=== PATIENT | female | born 1945 | race Two or more races ===

== ENCOUNTER 2016-06-30 19:33 | Emergency (ER) | payer BC, OTHER ==
[2016-06-30 19:56] VITALS: BP 128/69; PULSE 68; TEMP 98.4; BMI 28.9
[2016-06-30] MEDS ORDERED: NAPROXEN 375 MG TABLET (FP) PO ONE (21:39)
[2016-06-30] MEDS ORDERED: CYCLOBENZAPRINE HCL 10 MG TABLET (FP) PO ONE (21:39)
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
[2016-06-30] MEDS ORDERED: NAPROXEN 500 MG TABLET (FP) PO ONE (21:44)
[2016-06-30] MEDS ORDERED: NAPROXEN 500 MG TABLET (FP) ONE (21:44)
[2016-06-30] MEDS ORDERED: CYCLOBENZAPRINE HCL 10 MG TABLET (FP) ONE ×2 (21:44→23:02)
== END 2016-06-30 23:27 | disposition home or self-care (01) ==
LOC: JERFT 19:33 → JER 19:33
DX: S16.1XXA Strain of muscle, fascia and tendon at neck level, initial encounter (principal); S13.8XXA Sprain of joints and ligaments of other parts of neck, initial encounter; V43.52XA Car driver injured in collision with other type car in traffic accident, initial encounter; Y92.414 Local residential or business street as the place of occurrence of the external cause; Y93.89 Activity, other specified; E11.9 Type 2 diabetes mellitus without complications; Z79.84 Long term (current) use of oral hypoglycemic drugs; I10 Essential (primary) hypertension
CPT/HCPCS: 70450-TC; 72125-TC; 99282-25

== ENCOUNTER 2018-04-16 17:12 | Emergency (ER) | payer BC, OTHER ==
[2018-04-16 17:32] VITALS: BP 137/73; PULSE 71; TEMP 98.2; BMI 24.7
[2018-04-16] MEDS ORDERED: KETOROLAC TROMETHAMINE 30 MG/1 ML VIAL IM ONE (18:14)
[2018-04-16] MEDS ORDERED: KETOROLAC TROMETHAMINE 30 MG/1 ML VIAL ONE (18:22)
--- NOTE | 2018-04-16 18:22 | PDOC ---
History of Present Illness - General Chief Complaint: Pain Stated Complaint: PAIN IN LEFT LEG Time Seen by Provider: 04/16/18 17:35 History Source: Patient Exam Limitations: No Limitations - History of Present Illness Initial Comments: 04/16/18 18:15 CHIEF COMPLAINT: Lower back pain HISTORY OF PRESENT ILLNESS: This is a 72-year-old woman past medical history of diabetes presents emergency department for evaluation of lower back pain for the past 3 weeks. Patient reports the pain initially started in the lower back radiating down the posterior side of her right leg but now is radiating down her left leg. She denies any pain in her right leg at this time. She denies any neurosensory deficits, incontinence of bladder or bowel, urinary retention, saddle anesthesia or foot drop. She denies history of IV drug use or cancer. REVIEW OF SYSTEMS: GENERAL: Afebrile, denies any weakness RESPIRATORY: No cough, wheezing, or hemoptysis. CARDIAC: No chest pain or shortness of breath MUSCULOSKELETAL: Pain to generalized lower back. No point tenderness. Pain worse on left than right. SKIN : No erythema, no bruising, no deformity. GI/: Denies any abdominal pain, no urinary difficulty, incontinence or urinary retention. RECTAL: Denies any difficulty this A.m. NEUROLOGICAL: Denies any numbness or tingling. No neurosensory deficits. PHYSICAL EXAM: GENERAL: The patient is awake, alert, and fully oriented, in no acute distress. RESPIRATORY: Lungs clear bilaterally, no rhonchi wheezes or crackles CARDIAC: S1-S2 audible, no murmur rub or gallop MUSCULOSKELETAL: Pain to generalized lower back, nonradiating, no tingling or sensory deficit. Less than 2 second cap refill, +2 pedal pulses. No spinal point tenderness. Normal reflexive and no deficits to sensation or strength. Performs straight leg raises without difficulty. No discoloration to lower back. No muscle spasms present. GI/: Abdomen soft, nontender, nondistended. No rebound tenderness. No masses palpable. RECTAL: Deferred patient with no neurological findings SKIN: Warm, Dry, normal turgor, no erythema, no edema no bruising. Past History - Past Medical History Allergies/Adverse Reactions: Allergies Allergy/AdvReac Type Severity Reaction Status Date / Time No Known Allergies Allergy Verified 04/16/18 17:26 Home Medications: Ambulatory Orders Insulin (Levemir) [Levemir Flexpen -] 55 units SQ HS 09/30/13 Repaglinide [Prandin] 2 mg PO TID 09/30/13 Insulin Aspart [Novolog] 10 - 14 unit SQ TID 05/08/14 Lisinopril [Prinivil] 5 mg PO DAILY 05/08/14 Aspirin [ASA -] 81 mg PO DAILY #30 tab.chew 05/09/14 Cyclobenzaprine HCl [Flexeril 10 mg] 10 mg PO BID PRN #30 tablet 06/30/16 Diabetes: Yes - Surgical History Appendectomy: Yes Orthopedic Surgery: Yes (R WRIST) - Suicide/Smoking/Psychosocial Hx Smoking History: Unknown if ever smoked Have you smoked in the past 12 months: No If you are a former smoker, when did you quit?: 5 years ago Hx Alcohol Use: No Drug/Substance Use Hx: No Substance Use Type: None *Physical Exam - Vital Signs Last Vital Signs Temp Pulse Resp BP Pulse Ox 98.2 F 71 18 137/73 99 04/16/18 17:30 04/16/18 17:30 04/16/18 17:30 04/16/18 17:30 04/16/18 17:30 Moderate Sedation - Procedure Monitoring Vital Signs: Procedure Monitoring Vital Signs Temperature 98.2 F 04/16/18 17:30 Pulse Rate 71 04/16/18 17:30 Respiratory Rate 18 04/16/18 17:30 Blood Pressure 137/73 04/16/18 17:30 O2 Sat by Pulse Oximetry (%) 99 04/16/18 17:30 Medical Decision Making - Medical Decision Making 04/16/18 18:22 A/P: 72-year-old woman with lower back pain with left-sided sciatica Toradol 30 mg IM Discharge home to follow-up with her primary doctor as needed. *DC/Admit/Observation/Transfer Diagnosis at time of Disposition: Lower back pain Qualifiers: Chronicity: acute Back pain laterality: left Sciatica presence: with sciatica Sciatica laterality: sciatica of left side Qualified Code(s): M54.42 - Lumbago with sciatica, left side - Discharge Dispostion Disposition: HOME Condition at time of disposition: Stable Decision to Admit order: No - Referrals Referrals: Billie Ortega MD [Primary Care Provider] - - Patient Instructions Additional Instructions: Take Tylenol or Aleve as needed for pain. Follow manufacturers instructions for appropriate dosage. Warm moist heat applied to your back may help alleviate pain. Return to emergency department for discoloration of the foot, numbness or tingling to the foot, worsening pain, or any other concerns. Thank you very much for choosing us to provide your emergent healthcare needs. - Post Discharge Activity
== END 2018-04-16 18:58 | disposition home or self-care (01) ==
LOC: JERFT 17:12
PROC: 3E0233Z Introduction of Anti-inflammatory into Muscle, Percutaneous Approach (ICD-10-PCS; principal; 2018-04-16)
DX: M54.42 Lumbago with sciatica, left side (principal); E11.9 Type 2 diabetes mellitus without complications; Z79.4 Long term (current) use of insulin
CPT/HCPCS: 96372; 99281-25

== ENCOUNTER 2019-04-15 11:55 | Emergency (ER) | payer OTHER ==
[2019-04-15 12:24] VITALS: BP 106/62; PULSE 86; TEMP 98.1; BMI 26.9
--- NOTE | 2019-04-15 15:06 | EKG ---
Test Reason : Blood Pressure : / mmHG Vent. Rate : 065 BPM Atrial Rate : 065 BPM P-R Int : 130 ms QRS Dur : 090 ms QT Int : 486 ms P-R-T Axes : 049 002 031 degrees QTc Int : 505 ms NORMAL SINUS RHYTHM NONSPECIFIC T WAVE ABNORMALITY PROLONGED QT ABNORMAL ECG WHEN COMPARED WITH ECG OF 09-MAY-2014 13:47, NONSPECIFIC T WAVE ABNORMALITY HAS REPLACED INVERTED T WAVES IN INFERIOR LEADS T WAVE INVERSION NO LONGER EVIDENT IN ANTERIOR LEADS Confirmed by BEN DANIEL MD ([id number]) on 04/15/2019 3:06:08 PM Referred By: Confirmed By:BEN DANIEL MD
--- NOTE | 2019-04-15 15:44 | PDOC ---
History of Present Illness - General History Source: Patient - History of Present Illness Initial Comments: 04/15/19 17:17 The patient is a 73 y/o female PMHx of HTN, IDDM here today w/4 days of headache and chest pain. Headache is frontal, throbbing and increased severity of her normal headaches for which she usually takes Fiorcet. Patient also c/o sternal, throbbing, non-radiating chest pain and associated shortness of breath , no lightheadedness, palpitations, diaphoresis. No lower extremity swelling or recent travel/immobilization. <Diane Barkley - Last Filed: 04/16/19 09:07> <Marlene Kwon - Last Filed: 04/16/19 10:07> - General Chief Complaint: Shortness of Breath Stated Complaint: SOB Past History - Past Medical History COPD: No Diabetes: Yes - Surgical History Appendectomy: Yes Orthopedic Surgery: Yes (R WRIST) - Psycho Social/Smoking Cessation Hx Smoking History: Unknown if ever smoked Have you smoked in the past 12 months: No If you are a former smoker, when did you quit?: 5 years ago Hx Alcohol Use: No Drug/Substance Use Hx: No Substance Use Type: None <Diane Barkley - Last Filed: 04/16/19 09:07> <Marlene Kwon - Last Filed: 04/16/19 10:07> - Past Medical History Allergies/Adverse Reactions: Allergies Allergy/AdvReac Type Severity Reaction Status Date / Time No Known Allergies Allergy Verified 04/16/18 17:26 Home Medications: Ambulatory Orders Insulin (Levemir) [Levemir Flexpen -] 55 units SQ HS 09/30/13 Repaglinide [Prandin] 2 mg PO TID 09/30/13 Insulin Aspart [Novolog] 10 - 14 unit SQ TID 05/08/14 Lisinopril [Prinivil] 5 mg PO DAILY 05/08/14 Aspirin [ASA -] 81 mg PO DAILY #30 tab.chew 05/09/14 Cyclobenzaprine HCl [Flexeril 10 mg] 10 mg PO BID PRN #30 tablet 06/30/16 Butalb/Acetaminophen/Caffeine [Fioricet Tablet 50-325-40] 1 tab PO Q6H PRN 02/14 /20 Insulin Detemir [Levemir Flextouch] 60 unit SQ HS 04/15/19 Review of Systems - Review of Systems Constitutional: No: Chills, Fever HEENTM: No: Blurred Vision, Throat Pain Respiratory: Yes: Shortness of Breath. No: Cough Cardiac (ROS): Yes: Chest Pain. No: Lightheadedness, Palpitations ABD/GI: No: Constipated, Diarrhea, Nausea : No: Burning, Hematuria Neurological: Yes: Headache. No: Numbness, Tremors, Ataxia, Dizziness <Diane Barkley - Last Filed: 04/16/19 09:07> *Physical Exam - Vital Signs Last Vital Signs Temp Pulse Resp BP Pulse Ox 98.1 F 86 20 106/62 98 04/15/19 12:22 04/15/19 12:22 04/15/19 12:22 04/15/19 12:22 04/15/19 12:22 - Physical Exam General Appearance: Yes: Nourished, Appropriately Dressed HEENT: positive: Normal Voice, Hearing Grossly Normal Neck: positive: Trachea midline, Supple Respiratory/Chest: positive: Lungs Clear, Normal Breath Sounds Cardiovascular: positive: S1, S2. negative: Edema, JVD Gastrointestinal/Abdominal: positive: Normal Bowel Sounds, Soft Extremity: positive: Normal Capillary Refill, Normal Inspection Integumentary: positive: Normal Color, Dry, Warm Neurologic: positive: chief technology officer II-XII NML intact, Fully Oriented, Alert, Responsive. negative: Facial Droop, Numbness <Diane Barkley - Last Filed: 04/16/19 09:07> - Vital Signs Last Vital Signs Temp Pulse Resp BP Pulse Ox 98.1 F 86 20 106/62 98 04/15/19 12:22 04/15/19 12:22 04/15/19 12:22 04/15/19 12:22 04/15/19 12:22 <Marlene Kwon - Last Filed: 04/16/19 10:07> Medical Decision Making - Medical Decision Making 04/15/19 17:21 73 y/o female with chest pain and headache. VS unremarkable Frontal diagnosis: r/o ACS, also consider MSK, GERD, Esophageal Spasm, costochondritis. Head CT as patient states OSORIO is of different severity than previous migraines evaluate for bleed. Patient is choosing to leave AMA - counseled on risks of worsening morbidity/ mortality. <Diane Barkley - Last Filed: 04/16/19 09:07> Discharge - Discharge Information Problems reviewed: Yes - Admission No <Ray Barkleyica - Last Filed: 04/16/19 09:07> <Marlene Kwon - Last Filed: 04/16/19 10:07> - Discharge Information Clinical Impression/Diagnosis: Headache, Chest pain Disposition: AGAINST MEDICAL ADVICE - Follow up/Referral Referrals: Norberto Sosa MD [Primary Care Provider] - - Patient Discharge Instructions Additional Instructions: You are choosing to leave AGAINST MEDICAL ADVICE The risk of doing so include infection, myocardial infarction, arrhythmia, pneumonia, Pulmonary embolism, dissection, head bleed, stroke, respiratory failure, cardiac arrest, seizure/coma//severe disability, loss of function , delay in diagnosis and treatment. Return to the Emergency Department for any new/worsening/concerning symptoms or should you wish to receive a complete medical evaluation. - Post Discharge Activity
[2019-04-15] MEDS ORDERED: SODIUM CHLORIDE 0.9% 500 ML INFUS.BAG IV ONE (16:04)
[2019-04-15] MEDS ORDERED: METOCLOPRAMIDE HCL INJECTION 10 MG/2 ML VIAL IVPUSH ONE (16:04)
[2019-04-15] MEDS ORDERED: ACETAMINOPHEN 1000 MG/100 ML VIAL (NON FORMULARY) IVPB ONE (16:04)
[2019-04-15] MEDS ORDERED: DEXAMETHASONE SOD PHOSPHATE 10 MG/1 ML VIAL IM ONE (16:08)
[2019-04-15] MEDS ORDERED: ACETAMINOPHEN 500 MG TABLET (FP) PO ONE (16:08)
--- NOTE | 2019-04-15 16:29 | PDOC ---
Documentation entered by Maryjo Hernandez SCRIBE, acting as scribe for Marlene Kwon MD. Marlene Kwon MD: This documentation has been prepared by the David christie Nirvannie, SCRIBE, under my direction and personally reviewed by me in its entirety. I confirm that the documentation accurately reflects all work, treatment, procedures, and medical decision making performed by me. Attending Attestation - Resident Resident Name: Diane Barkley - ED Attending Attestation I have performed the following: I have examined & evaluated the patient, The case was reviewed & discussed with the resident, I agree w/resident's findings & plan, Exceptions are as noted - HPI HPI: 04/15/19 16:25 [id number], with a significant past medical history of hypertension and insulin- dependent diabetes, who presents to the emergency department for 3-4 days of chest pain and shortness of breath. Denies fever, chills, palpitation, dizziness, weakness, N, V, D, abdominal pain , bladder and bowel problems, leg swelling, No sick contacts or travel. No new changes in medications. Allergies: None Past Medical History: hypertension and insulin-dependent diabetes Social history: Lives with family. No tobacco, ETOH or drug use. Surgical history: R wrist surgery. Meds: as documented in EMR PMD: Dr. Sosa - Physicial Exam PE: 04/15/19 16:26 NAD, well appearing, EOMI, PERRL, nl conjunctiva, anicteric; neck supple. lungs clear, no respiratory distress. RRR, abdomen soft nontender. No rebound, no guarding. Back nontender. SHEETS x4, no focal neuro deficits. No peripheral edema. normal color for ethnicity, WWP. gait stable. 04/15/19 16:27 - Medical Decision Making 04/15/19 16:28 Vital Signs Temp Pulse Resp BP Pulse Ox 98.1 F 86 20 106/62 98 04/15/19 12:22 04/15/19 12:22 04/15/19 12:22 04/15/19 12:22 04/15/19 12:22 VS reviewed, wnl. DDx: ACS, coronary vasospasm, NSTEMI, arrhythmia, unstable angina, PE, dissection, PUD, esophageal spasm, GERD, gastritis, costochondritis, pneumonia, pleurisy, pericarditis/myocarditis. dehydration, electrolyte/metabolic derangements. migraine, tension osorio, cluster OSORIO, CVA, ICH, bleed. Considered but clinically doubt based on HPI and PE: Low suspicion for pulmonary embolism or dissection. Chest pain negative: No evidence of ACS, pericarditis, myocarditis, pulmonary embolism, pneumothorax, pneumonia, Zoster, or esophageal perforation. Historically not abrupt in onset, tearing or ripping, pulses symmetric, no evidence of aortic dissection. DDx SOB: ACS, PE, PTX, CHF, COPD exac, pulmonary edema, pleurisy, pneumonia, viral syndrome. effusion. anemia, electrolyte/metabolic derangements. EKG normal sinus rhythm, no interval abnormalities, narrow QRS, ST and T wave segments and morphology normal. Nonspecific T wave abnormalities, unchanged from prior s/o to Dr Dudley pending labs, CTH, reeval. will warrant one trop to eval for ACS/NSTEMI, labs and head imaging to eval for mass/bleed/cva. 04/15/19 16:28
== END 2019-04-15 17:30 | disposition left against medical advice (07) ==
LOC: JER 11:55
DX: R07.9 Chest pain, unspecified (principal); R51 Headache; I10 Essential (primary) hypertension; E11.9 Type 2 diabetes mellitus without complications; Z79.4 Long term (current) use of insulin
CPT/HCPCS: 93005; 93010; 99284-25

== ENCOUNTER 2022-08-01 10:46 | Observation (INO) | payer OTHER ==
[2022-08-01] MEDS ORDERED: SODIUM CHLORIDE 0.9% 500 ML INFUS.BAG IV ONE ×2 (11:27→13:19)
[2022-08-01] MEDS ORDERED: ACETAMINOPHEN 1000 MG/100 ML BAG IVPB ONE (11:30)
[2022-08-01] MEDS ORDERED: KETOROLAC TROMETHAMINE 15 MG/ML VIAL IVPUSH ONE (11:37)
[2022-08-01] MEDS ORDERED: ACETAMINOPHEN INJECTION 100 ML IVPB ONE ×2 (12:10→19:40)
[2022-08-01] MEDS ORDERED: KETOROLAC TROMETHAMINE 15 MG/ML VIAL ONE (12:10)
[2022-08-01 12:29] LABS: BASO % 0.1 % (0-2.0); HEMATOCRIT 37.7 % (32.4-45.2); HEMOGLOBIN 12.5 GM/dL (10.7-15.3); LYMPH % 9.2 % (8-40); MCH 29.5 pg (25.7-33.7); MCHC 33.3 g/dl (32.0-36.0); MEAN CELL VOLUME 88.6 fl (80-96); MEAN PLT VOLUME 9.3 fl (7.5-11.1); NEUT % 82.7 % (42.8-82.8); PLATELET COUNT 302 10^3/uL (134-434); RBC 4.26 M/mm3 (3.60-5.2); RDW 13.5 % (11.6-15.6)
[2022-08-01 12:55] LABS: POTASSIUM 3.7 mmol/L (3.5-5.1)
[2022-08-01 12:57] LABS: ALBUMIN 3.6 g/dl (3.4-5.0); BLOOD UREA NITROGEN 10.7 mg/dL (7-18); CALCIUM 10.5 mg/dL (8.5-10.1)
[2022-08-01 13:00] LABS: CREATININE 0.7 mg/dL (0.55-1.3); LACTIC ACID 2.6 mmol/L (0.4-2.0)
[2022-08-01 13:02] LABS: BILIRUBIN,TOTAL 0.6 mg/dL (0.2-1)
[2022-08-01 14:06] LABS: URINE COLOR YELLOW
[2022-08-01 14:07] LABS: PH,URINE 5.5 (5.0-8.0); URINE APPEARANCE TURBID; URINE BILIRUBIN NEGATIVE (NEGATIVE); URINE GLUCOSE (UA) 3+ (NEGATIVE); URINE KETONE NEGATIVE (NEGATIVE); URINE LEUK ESTERASE 3+ (NEGATIVE); URINE NITRITE POSITIVE (NEGATIVE); URINE PROTEIN 3+ (NEGATIVE); URINE UROBILINOGEN 0.2 mg/dL (0.2-1.0)
[2022-08-01 14:10] LABS: EPI CELLS >36 /uL (0-25.1); HYALINE CASTS 72 /uL (0-3.1); URINE BACTERIA >9,000 /uL (0-1359); URINE WBC 23610 /uL (0-25.8)
[2022-08-01] MEDS ORDERED: CEFTRIAXONE 1 GM in DEXTROSE 5%-WATER - 50 ML IVPB ONE (14:14)
[2022-08-01] MEDS ORDERED: CEFTRIAXONE 1 GM/50 ML BAG ONE (14:32)
[2022-08-01 15:05] LABS: URINE RBC 660 /uL (0-23.9)
[2022-08-01] MEDS: DEXTROSE 5%-0.45% SALINE 1,000 ML IV SCH (18:22)
[2022-08-01] MEDS: INSULIN (NOVOLOG) ASPART 100 UNITS/ML 10ML VIAL SQ SCH (18:22)
[2022-08-01] MEDS: ACETAMINOPHEN 500 MG TABLET (FP) PO PRN (19:51)
[2022-08-01] MEDS: ATORVASTATIN CA 20 MG TABLET (FP) PO SCH (21:47)
[2022-08-01] MEDS: INSULIN (LEVEMIR) 100 UNITS/ML UNITS SQ SCH (21:50)
[2022-08-01] MEDS: INSULIN SLIDING SCALE (NOVOLOG) 1 VIAL SQ SCH (21:51)
[2022-08-01 22:12] VITALS: BMI 24.1
[2022-08-02] MEDS: ACETAMINOPHEN 500 MG TABLET (FP) PO PRN (05:36)
[2022-08-02] MEDS: INSULIN (NOVOLOG) ASPART 100 UNITS/ML 10ML VIAL SQ SCH ×3 (06:03→16:40)
[2022-08-02] MEDS: INSULIN SLIDING SCALE (NOVOLOG) 1 VIAL SQ SCH ×4 (06:03→21:22)
[2022-08-02] MEDS ORDERED: KETOROLAC TROMETHAMINE 30 MG/1 ML VIAL IVPUSH PRN (07:31)
[2022-08-02] MEDS: DEXTROSE 5%-0.45% SALINE 1,000 ML IV SCH ×3 (07:35→16:41)
[2022-08-02] MEDS ORDERED: RIMEGEPANT SULFATE 75 MG TAB.RAPDIS SL PRN (07:36)
[2022-08-02] MEDS: LISINOPRIL 5 MG TABLET PO SCH (09:33)
[2022-08-02] MEDS ORDERED: CEFTRIAXONE 1 GM in DEXTROSE 5%-WATER - 50 ML IVPB SCH (10:00)
[2022-08-02 10:08] LABS: HEMATOCRIT 30.1 % (32.4-45.2); MCH 29.3 pg (25.7-33.7); MCHC 33.1 g/dl (32.0-36.0); MEAN CELL VOLUME 88.4 fl (80-96); MEAN PLT VOLUME 9.1 fl (7.5-11.1); PLATELET COUNT 242 10^3/uL (134-434); RDW 13.5 % (11.6-15.6); WHITE BLOOD COUNT 12.5 K/mm3 (4.0-10.0)
[2022-08-02 10:29] LABS: POTASSIUM 3.4 mmol/L (3.5-5.1)
[2022-08-02 10:33] LABS: CHOLESTEROL 109 mg/dL (50-200)
[2022-08-02 10:34] LABS: LDL CHOLESTEROL (ONLY SJRH) 50 mg/dL (5-100)
[2022-08-02] MEDS: INSULIN (LEVEMIR) 100 UNITS/ML UNITS SQ SCH ×2 (10:35→21:22)
[2022-08-02 10:36] LABS: BLOOD UREA NITROGEN 8.5 mg/dL (7-18); HDL CHOLESTEROL 44 mg/dL (40-60); MAGNESIUM 1.7 mg/dL (1.8-2.4)
[2022-08-02 10:39] LABS: CREATININE 0.5 mg/dL (0.55-1.3); PHOSPHOROUS 1.4 mg/dL (2.5-4.9)
[2022-08-02 10:41] LABS: BILIRUBIN,TOTAL 0.4 mg/dL (0.2-1)
[2022-08-02 10:53] LABS: ALBUMIN 2.4 g/dl (3.4-5.0); TOT PROT 5.8 g/dl (6.4-8.2)
[2022-08-02] MEDS ORDERED: INSULIN (NOVOLOG) ASPART 100 UNITS/ML 10ML VIAL ONE (21:03)
[2022-08-02] MEDS: TOPIRAMATE 25 MG TABLET PO SCH (21:16)
[2022-08-02] MEDS: ATORVASTATIN CA 20 MG TABLET (FP) PO SCH (21:16)
[2022-08-03] MEDS: PIPERACILLIN/TAZOB 3.375 GM 3.375 GM in DEXTROSE 5%-WATER - 50 ML IVPB SCH ×3 (01:50→17:04)
[2022-08-03] MEDS: INSULIN (NOVOLOG) ASPART 100 UNITS/ML 10ML VIAL SQ SCH ×3 (06:00→16:26)
[2022-08-03] MEDS: INSULIN SLIDING SCALE (NOVOLOG) 1 VIAL SQ SCH ×4 (06:01→21:51)
[2022-08-03] MEDS: ACETAMINOPHEN 500 MG TABLET (FP) PO PRN ×2 (06:21→21:49)
[2022-08-03] MEDS: LISINOPRIL 5 MG TABLET PO SCH (09:35)
[2022-08-03] MEDS: INSULIN (LEVEMIR) 100 UNITS/ML UNITS SQ SCH ×2 (10:51→21:51)
[2022-08-03] MEDS: DEXTROSE 5%-0.45% SALINE 1,000 ML IV SCH (16:24)
[2022-08-03] MEDS ORDERED: INSULIN (NOVOLOG) ASPART 100 UNITS/ML 10ML VIAL ONE (21:31)
[2022-08-03] MEDS: TOPIRAMATE 25 MG TABLET PO SCH (21:50)
[2022-08-03] MEDS: ATORVASTATIN CA 20 MG TABLET (FP) PO SCH (21:51)
[2022-08-04] MEDS: PIPERACILLIN/TAZOB 3.375 GM 3.375 GM in DEXTROSE 5%-WATER - 50 ML IVPB SCH ×3 (01:31→17:26)
[2022-08-04 05:28] VITALS: RESP 18
[2022-08-04] MEDS: DEXTROSE 5%-0.45% SALINE 1,000 ML IV SCH ×2 (06:23→16:35)
[2022-08-04] MEDS: INSULIN SLIDING SCALE (NOVOLOG) 1 VIAL SQ SCH ×3 (06:25→16:36)
[2022-08-04] MEDS: INSULIN (NOVOLOG) ASPART 100 UNITS/ML 10ML VIAL SQ SCH ×3 (06:25→16:36)
[2022-08-04] MEDS: LISINOPRIL 5 MG TABLET PO SCH (09:51)
[2022-08-04 10:44] LABS: POTASSIUM 3.9 mmol/L (3.5-5.1)
[2022-08-04 10:50] LABS: ALBUMIN 2.5 g/dl (3.4-5.0); BLOOD UREA NITROGEN 7.4 mg/dL (7-18); CALCIUM 9.9 mg/dL (8.5-10.1)
[2022-08-04] MEDS: INSULIN (LEVEMIR) 100 UNITS/ML UNITS SQ SCH (10:51)
[2022-08-04 10:53] LABS: CREATININE 0.7 mg/dL (0.55-1.3)
[2022-08-04 10:55] LABS: BILIRUBIN,TOTAL 0.3 mg/dL (0.2-1); TOT PROT 6.4 g/dl (6.4-8.2)
[2022-08-04 14:39] VITALS: BP 125/73; PULSE 60; TEMP 98.1
== END 2022-08-04 17:41 | disposition home or self-care (01) ==
LOC: JERFT 10:46 → JER 10:46 → JERBED 16:00 → J6S 21:25
PROVIDERS: ADMIT Student in an Organized Health Care Education/Training Program; ATTEND Family Medicine
PROC: 3E03329 Introduction of Other Anti-infective into Peripheral Vein, Percutaneous Approach (ICD-10-PCS; principal; 2022-08-01)
PROC: 3E0333Z Introduction of Anti-inflammatory into Peripheral Vein, Percutaneous Approach (ICD-10-PCS; 2022-08-01)
PROC: 3E0337Z Introduction of Electrolytic and Water Balance Substance into Peripheral Vein, Percutaneous Approach (ICD-10-PCS; 2022-08-01)
PROC: 3E033GC Introduction of Other Therapeutic Substance into Peripheral Vein, Percutaneous Approach (ICD-10-PCS; 2022-08-01)
PROC: 3E013VG Introduction of Insulin into Subcutaneous Tissue, Percutaneous Approach (ICD-10-PCS; 2022-08-01)
DX: N12 Tubulo-interstitial nephritis, not specified as acute or chronic (principal); N39.0 Urinary tract infection, site not specified; E11.9 Type 2 diabetes mellitus without complications; R51.9 Headache, unspecified; M54.42 Lumbago with sciatica, left side; Z79.4 Long term (current) use of insulin; E87.6 Hypokalemia; R80.9 Proteinuria, unspecified; N28.1 Cyst of kidney, acquired
CPT/HCPCS: 0241U-QW; 36415; 71046-TC-FY; 76775-TC; 80053; 80061; 81003; 82570; 82962; 83036; 83605; 83735; 84100; 84156; 84484; 85025; 85027; 87040; 87086; 87186; 93005; 93010; 96365; 96372; 96375; 96376; 97116-GP; 97161-GP; 99285-25; G0378

== ENCOUNTER 2022-10-24 16:16 | Emergency (ER) | payer OTHER ==
[2022-10-24 16:22] VITALS: BP 103/63; PULSE 66; RESP 18; TEMP 97; BMI 26.3
[2022-10-24] MEDS ORDERED: ACETAMINOPHEN 325 MG TABLET (FP) PO ONE (18:28)
[2022-10-24] MEDS ORDERED: IBUPROFEN 400 MG TABLET (FP) PO ONE ×2 (18:28→18:44)
[2022-10-24] MEDS ORDERED: ACETAMINOPHEN 325 MG TABLET (FP) ONE (18:44)
[2022-10-24 18:52] LABS: EPI CELLS 17 /uL (0-25.1); HYALINE CASTS 1 /uL (0-3.1); PH,URINE 5.5 (5.0-8.0); URINE APPEARANCE CLEAR; URINE BACTERIA 209 /uL (0-1359); URINE BILIRUBIN NEGATIVE (NEGATIVE); URINE COLOR YELLOW; URINE GLUCOSE (UA) NEGATIVE (NEGATIVE); URINE KETONE NEGATIVE (NEGATIVE); URINE LEUK ESTERASE TRACE (NEGATIVE); URINE NITRITE NEGATIVE (NEGATIVE); URINE PROTEIN NEGATIVE (NEGATIVE); URINE RBC 11 /uL (0-23.9); URINE WBC 24 /uL (0-25.8)
[2022-10-24] MEDS ORDERED: LIDOCAINE 5% TOPICAL PATCH ONE (18:54)
== END 2022-10-24 19:06 | disposition home or self-care (01) ==
LOC: JERFT 16:16
DX: M54.50 Low back pain, unspecified (principal); M54.6 Pain in thoracic spine; R26.2 Difficulty in walking, not elsewhere classified
CPT/HCPCS: 81003; 87086; 87186; 99283-25

== ENCOUNTER 2023-03-21 13:26 | Emergency (ER) | payer OTHER ==
[2023-03-21 13:36] VITALS: BP 163/79; PULSE 77; RESP 18; TEMP 98.3; BMI 25.9
[2023-03-21 16:13] LABS: URINE APPEARANCE CLEAR; URINE BILIRUBIN NEGATIVE (NEGATIVE); URINE COLOR YELLOW; URINE GLUCOSE (UA) 3+ (NEGATIVE); URINE KETONE TRACE (NEGATIVE); URINE LEUK ESTERASE NEGATIVE (NEGATIVE); URINE NITRITE NEGATIVE (NEGATIVE); URINE PROTEIN NEGATIVE (NEGATIVE); URINE UROBILINOGEN 0.2 mg/dL (0.2-1.0)
[2023-03-21 16:16] LABS: BASO % 0.4 % (0-2.0); EOS % 1.9 % (0-4.5); HEMATOCRIT 41.5 % (32.4-45.2); HEMOGLOBIN 13.4 GM/dL (10.7-15.3); LYMPH % 25.5 % (8-40); MCHC 32.3 g/dl (32.0-36.0); MEAN CELL VOLUME 89.7 fl (80-96); MEAN PLT VOLUME 9.2 fl (7.5-11.1); MONO % 6.8 % (3.8-10.2); NEUT % 65.4 % (42.8-82.8); PLATELET COUNT 286 10^3/uL (134-434); RBC 4.62 M/mm3 (3.60-5.2); RDW 13.8 % (11.6-15.6); WHITE BLOOD COUNT 12.6 K/mm3 (4.0-10.0)
[2023-03-21 16:30] LABS: POTASSIUM 4.6 mmol/L (3.5-5.1)
[2023-03-21 16:33] LABS: CALCIUM 10.4 mg/dL (8.5-10.1)
[2023-03-21 16:34] LABS: BLOOD UREA NITROGEN 19.8 mg/dL (7-18)
[2023-03-21 16:37] LABS: CREATININE 0.9 mg/dL (0.55-1.3)
== END 2023-03-21 18:07 | disposition home or self-care (01) ==
LOC: JER 13:26
DX: R51.9 Headache, unspecified (principal); R20.2 Paresthesia of skin; R07.9 Chest pain, unspecified; M54.9 Dorsalgia, unspecified; M79.2 Neuralgia and neuritis, unspecified
CPT/HCPCS: 36415; 80048; 81003; 85025; 87086; 93005; 93010; 99284-25

== ENCOUNTER 2023-09-20 17:29 | Emergency (ER) | payer OTHER ==
[2023-09-20 18:14] VITALS: BP 145/74; PULSE 78; RESP 18; TEMP 98.2; BMI 25.6
[2023-09-20] MEDS ORDERED: DEXTROSE 50%-WATER 25 GM/50 ML DISP.SYRIN ONE (18:33)
[2023-09-20] MEDS ORDERED: LIDOCAINE 4% PATCH TP ONE (18:44)
[2023-09-20] MEDS: DEXTROSE 50%-WATER - 25 GM/50 ML VIAL IVPUSH ONE (19:01)
[2023-09-20] MEDS: LIDOCAINE 4% PATCH TP ONE (19:02)
[2023-09-20 19:09] LABS: BASO % 0.3 % (0-2.0); EOS % 0.7 % (0-4.5); HEMATOCRIT 37.4 % (32.4-45.2); HEMOGLOBIN 12.2 GM/dL (10.7-15.3); LYMPH % 30.4 % (8-40); MCH 29.3 pg (25.7-33.7); MCHC 32.6 g/dl (32.0-36.0); MEAN PLT VOLUME 9.1 fl (7.5-11.1); MONO % 7.7 % (3.8-10.2); NEUT % 60.9 % (42.8-82.8); PLATELET COUNT 286 10^3/uL (134-434); RBC 4.16 M/mm3 (3.60-5.2); RDW 14.2 % (11.6-15.6); WHITE BLOOD COUNT 13.7 K/mm3 (4.0-10.0)
[2023-09-20 19:17] LABS: INR 0.92 (0.83-1.09); PROTHROMBIN TIME (PATIENT) 10.4 SEC (9.7-13.0)
[2023-09-20 19:20] LABS: ACTIVATED PTT 27.7 SECONDS (25.2-36.5)
[2023-09-20 19:24] LABS: POTASSIUM 4.4 mmol/L (3.5-5.1)
[2023-09-20 19:29] LABS: ALBUMIN 3.6 g/dl (3.4-5.0); CALCIUM 10.6 mg/dL (8.5-10.1)
[2023-09-20 19:33] LABS: CREATININE 0.6 mg/dL (0.55-1.3)
[2023-09-20 19:34] LABS: BILIRUBIN,TOTAL 0.4 mg/dL (0.2-1)
[2023-09-20 19:35] LABS: TOT PROT 7.4 g/dl (6.4-8.2)
[2023-09-20] MEDS ORDERED: ACETAMINOPHEN INJECTION 100 ML IVPB ONE (20:19)
[2023-09-20] MEDS: ACETAMINOPHEN 1000 MG/100 ML BAG IVPB ONE (20:41)
[2023-09-20] MEDS ORDERED: LIDOCAINE PATCH REMOVAL MC SCH (22:00)
== END 2023-09-20 21:51 | disposition home or self-care (01) ==
LOC: JER 17:29
PROC: 3E033NZ Introduction of Analgesics, Hypnotics, Sedatives into Peripheral Vein, Percutaneous Approach (ICD-10-PCS; principal; 2023-09-20)
PROC: 3E0337Z Introduction of Electrolytic and Water Balance Substance into Peripheral Vein, Percutaneous Approach (ICD-10-PCS; 2023-09-20)
DX: R51.9 Headache, unspecified (principal); R07.2 Precordial pain; R11.0 Nausea; R06.02 Shortness of breath; Z20.822 Contact with and (suspected) exposure to COVID-19
CPT/HCPCS: 0241U-QW; 36415; 70450-TC; 71046-TC-FY; 80053; 82962; 83880; 84484; 85025; 85379; 85610; 85730; 86850; 86900; 86901; 93005; 93010; 96374; 96375; 99285-25; J0131

== ENCOUNTER 2023-10-23 04:00 | Day surgery (SDC) | payer OTHER ==
[2023-10-21 16:42] VITALS: BMI 27.8
[2023-10-23] MEDS ORDERED: LIDOCAINE HCL/PF 1% SDV 5ML VIAL ONE (07:21)
[2023-10-23] MEDS: LIDOCAINE HCL 1% PRESERVATIVE FREE - 30ML VIAL IJ ONE ×2 (08:58)
[2023-10-23 10:21] VITALS: BP 142/74; PULSE 67; RESP 20; TEMP 97.8
[2023-10-23] MEDS ORDERED: ACETAMINOPHEN 500 MG TABLET (FP) PO PRN (15:19)
== END 2023-10-23 10:02 | disposition home or self-care (01) ==
LOC: JASU-SURG 04:00
PROVIDERS: ATTEND Pain Medicine Pain Medicine
PROC: 01HY3MZ Insertion of Neurostimulator Lead into Peripheral Nerve, Percutaneous Approach (ICD-10-PCS; principal; 2023-10-23 08:30)
DX: G89.4 Chronic pain syndrome (principal); M54.50 Low back pain, unspecified
CPT/HCPCS: 64555; C1778; 76000-TC-FY

== ENCOUNTER 2024-01-20 11:51 | Emergency (ER) | payer OTHER ==
[2024-01-20 11:57] VITALS: BP 143/88; PULSE 85; RESP 18; TEMP 98; BMI 26.5
== END 2024-01-20 14:45 | disposition home or self-care (01) ==
LOC: JER 11:51
DX: M25.522 Pain in left elbow (principal); M19.021 Primary osteoarthritis, right elbow
CPT/HCPCS: 73070-TC-LT-FY; 73070-TC-RT-FY; 82962; 99284-25

== ENCOUNTER 2024-02-26 11:32 | Observation (INO) | payer OTHER ==
[2024-02-26 11:38] VITALS: BMI 26.6
[2024-02-26] MEDS ORDERED: ACETAMINOPHEN INJECTION 100 ML ONE (12:15)
[2024-02-26] MEDS: SODIUM CHLORIDE 0.9% 500 ML INFUS.BAG IV ONE ×2 (12:32→17:12)
[2024-02-26] MEDS: ACETAMINOPHEN 1000 MG/100 ML BAG IVPB ONE (12:32)
[2024-02-26 12:48] LABS: BASO % 0.2 % (0-2.0); EOS % 0.1 % (0-4.5); EPI CELLS >36 /uL (0-25.1); HEMATOCRIT 36.3 % (32.4-45.2); HEMOGLOBIN 11.7 GM/dL (10.7-15.3); HYALINE CASTS 0 /uL (0-3.1); LYMPH % 9.2 % (8-40); MCH 28.8 pg (25.7-33.7); MCHC 32.4 g/dl (32.0-36.0); MEAN CELL VOLUME 88.9 fl (80-96); MEAN PLT VOLUME 9.3 fl (7.5-11.1); MONO % 6.4 % (3.8-10.2); NEUT % 84.1 % (42.8-82.8); PLATELET COUNT 268 10^3/uL (134-434); RBC 4.08 M/mm3 (3.60-5.2); RDW 13.8 % (11.6-15.6); URINE APPEARANCE CLEAR; URINE BACTERIA 550 /uL (0-1359); URINE BILIRUBIN NEGATIVE (NEGATIVE); URINE COLOR YELLOW; URINE GLUCOSE (UA) 2+ (NEGATIVE); URINE KETONE TRACE (NEGATIVE); URINE LEUK ESTERASE NEGATIVE (NEGATIVE); URINE NITRITE NEGATIVE (NEGATIVE); URINE PROTEIN 1+ (NEGATIVE); URINE RBC 17 /uL (0-23.9); URINE UROBILINOGEN 0.2 mg/dL (0.2-1.0); URINE WBC 16 /uL (0-25.8); WHITE BLOOD COUNT 17.5 K/mm3 (4.0-10.0)
[2024-02-26 13:04] LABS: POTASSIUM 4.1 mmol/L (3.5-5.1)
[2024-02-26 13:06] LABS: CALCIUM 10.1 mg/dL (8.5-10.1)
[2024-02-26 13:07] LABS: ALBUMIN 3.2 g/dl (3.4-5.0); BLOOD UREA NITROGEN 10.7 mg/dL (7-18)
[2024-02-26 13:10] LABS: CREATININE 0.7 mg/dL (0.55-1.3)
[2024-02-26 13:12] LABS: BILIRUBIN,TOTAL 0.9 mg/dL (0.2-1)
[2024-02-26] MEDS ORDERED: PIPERACILLIN/TAZOB 4.5 GM 4.5 GM/100 ML BAG IVPB ONE (17:01)
[2024-02-26] MEDS: PIPERACILLIN/TAZOB 4.5 GM 4.5 GM in DEXTROSE 5%-WATER 100 ML IVPB ONE (17:12)
[2024-02-26 17:57] LABS: INR 1.11 (0.83-1.09); PROTHROMBIN TIME (PATIENT) 12.5 SEC (9.7-13.0)
[2024-02-26 18:00] LABS: ACTIVATED PTT 27.5 SECONDS (25.2-36.5)
[2024-02-27] MEDS: DEXTROSE 5%-0.45% SALINE 1,000 ML IV SCH (01:00)
[2024-02-27] MEDS: ACETAMINOPHEN 1000 MG/100 ML BAG IVPB PRN (01:05)
[2024-02-27] MEDS: PIPERACILLIN/TAZOB 4.5 GM 4.5 GM in DEXTROSE 5%-WATER 100 ML IVPB SCH (02:51)
[2024-02-27] MEDS: HEPARIN NA (PORCINE) 5,000 UNITS/ML 1ML VIAL SQ SCH (09:41)
[2024-02-27 09:43] LABS: BASO % 0.1 % (0-2.0); EOS % 1.2 % (0-4.5); HEMATOCRIT 32.7 % (32.4-45.2); HEMOGLOBIN 10.7 GM/dL (10.7-15.3); LYMPH % 20.1 % (8-40); MCH 29.3 pg (25.7-33.7); MCHC 32.7 g/dl (32.0-36.0); MEAN CELL VOLUME 89.5 fl (80-96); MEAN PLT VOLUME 9.4 fl (7.5-11.1); MONO % 7.1 % (3.8-10.2); NEUT % 71.5 % (42.8-82.8); PLATELET COUNT 226 10^3/uL (134-434); RBC 3.65 M/mm3 (3.60-5.2); RDW 14.1 % (11.6-15.6); WHITE BLOOD COUNT 10.5 K/mm3 (4.0-10.0)
[2024-02-27 09:48] LABS: POTASSIUM 3.6 mmol/L (3.5-5.1)
[2024-02-27 09:55] LABS: CALCIUM 9.2 mg/dL (8.5-10.1)
[2024-02-27 09:56] LABS: BLOOD UREA NITROGEN 5.9 mg/dL (7-18)
[2024-02-27 09:59] LABS: CREATININE 0.6 mg/dL (0.55-1.3)
[2024-02-27] MEDS: PIPERACILLIN/TAZOB 4.5 GM 4.5 GM/100 ML BAG IVPB SCH (15:23)
[2024-02-28] MEDS: KETOROLAC TROMETHAMINE 15 MG/ML VIAL IVPUSH PRN (04:43)
[2024-02-28 09:26] LABS: POTASSIUM 3.7 mmol/L (3.5-5.1)
[2024-02-28 09:29] LABS: ALBUMIN 2.8 g/dl (3.4-5.0); CALCIUM 9.5 mg/dL (8.5-10.1)
[2024-02-28 09:30] LABS: BLOOD UREA NITROGEN 5.4 mg/dL (7-18)
[2024-02-28 09:33] LABS: CREATININE 0.6 mg/dL (0.55-1.3)
[2024-02-28 09:34] LABS: BASO % 0.1 % (0-2.0); BILIRUBIN,TOTAL 0.5 mg/dL (0.2-1); EOS % 2.8 % (0-4.5); HEMATOCRIT 34.1 % (32.4-45.2); HEMOGLOBIN 11.4 GM/dL (10.7-15.3); LYMPH % 25.1 % (8-40); MCH 29.5 pg (25.7-33.7); MCHC 33.4 g/dl (32.0-36.0); MEAN CELL VOLUME 88.4 fl (80-96); MEAN PLT VOLUME 9.1 fl (7.5-11.1); MONO % 7.7 % (3.8-10.2); NEUT % 64.3 % (42.8-82.8); PLATELET COUNT 245 10^3/uL (134-434); RBC 3.85 M/mm3 (3.60-5.2); RDW 13.5 % (11.6-15.6); TOT PROT 6.5 g/dl (6.4-8.2); WHITE BLOOD COUNT 6.9 K/mm3 (4.0-10.0)
[2024-02-28 14:51] VITALS: RESP 18
[2024-02-28] MEDS: INSULIN ASPART SLIDING SCALE (NOVOLOG) 1 VIAL SQ SCH (21:32)
[2024-02-29 09:07] LABS: BASO % 0.5 % (0-2.0); EOS % 3.9 % (0-4.5); HEMATOCRIT 35.2 % (32.4-45.2); HEMOGLOBIN 11.5 GM/dL (10.7-15.3); LYMPH % 28.4 % (8-40); MCH 29.1 pg (25.7-33.7); MCHC 32.6 g/dl (32.0-36.0); MEAN CELL VOLUME 89.3 fl (80-96); MEAN PLT VOLUME 8.9 fl (7.5-11.1); MONO % 8.5 % (3.8-10.2); NEUT % 58.7 % (42.8-82.8); PLATELET COUNT 285 10^3/uL (134-434); RBC 3.94 M/mm3 (3.60-5.2); RDW 13.6 % (11.6-15.6); WHITE BLOOD COUNT 6.1 K/mm3 (4.0-10.0)
[2024-02-29 09:31] LABS: POTASSIUM 3.6 mmol/L (3.5-5.1)
[2024-02-29 10:00] LABS: CALCIUM 9.7 mg/dL (8.5-10.1)
[2024-02-29 10:01] LABS: BLOOD UREA NITROGEN 5.2 mg/dL (7-18)
[2024-02-29 10:04] LABS: CREATININE 0.7 mg/dL (0.55-1.3)
[2024-02-29 10:06] LABS: BILIRUBIN,TOTAL 0.5 mg/dL (0.2-1); TOT PROT 6.7 g/dl (6.4-8.2)
[2024-02-29 15:22] VITALS: BP 129/66; PULSE 63; TEMP 97.9
== END 2024-02-29 18:41 | disposition home or self-care (01) ==
LOC: JER 11:32 → JERBED 16:32 → J8W 22:30
PROVIDERS: ADMIT Internal Medicine; ATTEND Family Medicine
PROC: 3E033NZ Introduction of Analgesics, Hypnotics, Sedatives into Peripheral Vein, Percutaneous Approach (ICD-10-PCS; principal; 2024-02-26)
PROC: 3E013VG Introduction of Insulin into Subcutaneous Tissue, Percutaneous Approach (ICD-10-PCS; 2024-02-26)
PROC: 3E0333Z Introduction of Anti-inflammatory into Peripheral Vein, Percutaneous Approach (ICD-10-PCS; 2024-02-26)
DX: K57.92 Diverticulitis of intestine, part unspecified, without perforation or abscess without bleeding (principal); K65.1 Peritoneal abscess; E11.9 Type 2 diabetes mellitus without complications; E78.5 Hyperlipidemia, unspecified; R51.9 Headache, unspecified; M19.90 Unspecified osteoarthritis, unspecified site; Z87.891 Personal history of nicotine dependence
CPT/HCPCS: 36415; 71045-TC-FY; 74177-TC; 80048; 80053; 81003; 82962; 83690; 85025; 85610; 85730; 86850; 86900; 86901; 87040; 87086; 93005; 93010; 96372; 96374; 96375; 96376; 99285-25; G0378; J0131; J1644; Q9967